=== PATIENT | male | born 1980 | race Asian ===

== ENCOUNTER 2019-07-18 13:48 | Emergency (ER) | payer OTHER ==
--- NOTE | 2019-07-18 15:11 | RAD REPORT ---
EXAM DESCRIPTION: RAD -Hand Left 3 View - 07/18/2019 3:01 pm CLINICAL HISTORY: Left hand pain status post injury FINDINGS: No fracture or dislocation is seen.
--- NOTE | 2019-07-18 15:13 | EDPHYS ---
Physician Documentation [facility] Name: Long Mon Age: 39 yrs Sex: Male : 1980 Arrival Date: 07/18/2019 Time: 13:51 Bed 24 Private MD: ED Physician Gavin Padron HPI: 07/18 15:05 This 39 yrs old Male presents to ER via Ambulatory with complaints of Hand Injury. kb 15:05 The patient or guardian reports decreased range of motion, injury, pain, swelling, kb tenderness. The complaints affect the dorsum of left hand and dorsal aspect of proximal phalanx of left little finger and dorsal aspect of proximal phalanx of left ring finger and dorsal aspect of proximal phalanx of left middle finger. Context: The problem was sustained outdoors, resulted from a crush injury, by industrial equipment. Onset: The symptoms/episode began/occurred yesterday. Modifying factors: The symptoms are alleviated by nothing, the symptoms are aggravated by nothing. Associated signs and symptoms: The patient has no apparent associated signs or symptoms. Severity of symptoms: At their worst the symptoms were moderate, in the emergency department the symptoms are unchanged. The patient has not experienced similar symptoms in the past. The patient has not recently seen a physician. Pt reports his hand got smashed between the bumper of a forklift and wall yesterday. . Historical: - Allergies: 14:05 No Known Allergies; ss - Home Meds: 14:05 Allopurinol Oral [Active]; ss - PMHx: 14:05 None; ss - PSHx: 14:05 None; ss - Immunization history:: Adult Immunizations up to date. - Social history:: Smoking status: Patient denies any tobacco usage or history of. - Ebola Screening: : Patient denies exposure to infectious person Patient denies travel to an Ebola-affected area in the 21 days before illness onset. ROS: 15:05 Constitutional: Negative for fever, chills, and weight loss, Cardiovascular: Negative kb for chest pain, palpitations, and edema, Respiratory: Negative for shortness of breath, cough, wheezing, and pleuritic chest pain, Abdomen/GI: Negative for abdominal pain, nausea, vomiting, diarrhea, and constipation, Back: Negative for injury and pain, Skin: Negative for injury, rash, and discoloration, Neuro: Negative for headache, weakness, numbness, tingling, and seizure. 15:05 MS/extremity: Positive for injury or acute deformity, decreased range of motion, pain, swelling, tenderness, of the dorsum of left hand and dorsal aspect of proximal phalanx of left little finger and dorsal aspect of proximal phalanx of left ring finger and dorsal aspect of proximal phalanx of left middle finger. Exam: 15:02 Constitutional: This is a well developed, well nourished patient who is awake, alert, kb and in no acute distress. Head/Face: Normocephalic, atraumatic. Chest/axilla: Normal chest wall appearance and motion. Nontender with no deformity. No lesions are appreciated. Cardiovascular: Regular rate and rhythm with a normal S1 and S2. No gallops, murmurs, or rubs. Normal PMI, no JVD. No pulse deficits. Respiratory: Lungs have equal breath sounds bilaterally, clear to auscultation and percussion. No rales, rhonchi or wheezes noted. No increased work of breathing, no retractions or nasal flaring. Abdomen/GI: Soft, non-tender, with normal bowel sounds. No distension or tympany. No guarding or rebound. No evidence of tenderness throughout. Skin: Warm, dry with normal turgor. Normal color with no rashes, no lesions, and no evidence of cellulitis. Neuro: Awake and alert, GCS 15, oriented to person, place, time, and situation. Cranial nerves II-XII grossly intact. Motor strength 5/5 in all extremities. Sensory grossly intact. Cerebellar exam normal. Normal gait. 15:02 Musculoskeletal/extremity: Extremities: grossly normal except: noted in the dorsal aspect of proximal phalanx of left middle finger, dorsal aspect of proximal phalanx of left ring finger, dorsal aspect of proximal phalanx of left little finger and dorsum of left hand: decreased ROM, pain, swelling, tenderness, ROM: limited active range of motion, in the dorsal aspect of proximal phalanx of left middle finger, dorsal aspect of proximal phalanx of left ring finger and dorsal aspect of proximal phalanx of left little finger, Circulation is intact in all extremities. Sensation intact. Vital Signs: 14:05 BP 114 / 80; Pulse 83; Resp 15; Temp 98.3(O); Pulse Ox 98% on R/A; Weight 70 kg; Height ss 5 ft. 4 in. (162.56 cm); Pain 6/10; 14:05 Body Mass Index 26.49 (70.00 kg, 162.56 cm) ss MDM: 14:08 Patient medically screened. kb 15:02 Data reviewed: vital signs, nurses notes. Data interpreted: Pulse oximetry: on room air kb is 98 %. Interpretation: normal. 15:07 Test interpretation: by ED physician or midlevel provider: plain radiologic studies, kb nondisplaced fractures of 3rd, 4th and 5th metatarsals.. Counseling: I had a detailed discussion with the patient and/or guardian regarding: the historical points, exam findings, and any diagnostic results supporting the discharge/admit diagnosis, radiology results, the need for outpatient follow up, a hand specialist, to return to the emergency department if symptoms worsen or persist or if there are any questions or concerns that arise at home. 07/18 14:08 Order name: Hand Left 3 View XRAY; Complete Time: 15:14 kb 07/18 15:09 Order name: Volar Wrist Splint: need to extend past DIP of all fingers ; Complete Time: kb 15:38 07/18 15:09 Order name: Sling; Complete Time: 15:27 kb Administered Medications: 15:18 Drug: Ignacio (7.5 mg-325 mg) 1 tabs Route: PO; mg2 Disposition: 07/19 08:01 Co-signature as Attending Physician, Gavin Padron MD I agree with the assessment and tw4 plan of care. Disposition: 07/18/19 15:13 Discharged to Home. Impression: Nondisplaced fracture of shaft of third metacarpal bone, left hand, Nondisplaced fracture of shaft of fourth metacarpal bone, left hand, Nondisplaced fracture of shaft of fifth metacarpal bone, left hand. - Condition is Stable. - Discharge Instructions: Metacarpal Fracture, [id number], Cast or Splint Care, [id number]. - Prescriptions for Tylenol- Codeine #3 300-30 mg Oral Tablet - take 1 tablet by ORAL route every 6 hours As needed; 15 tablet. - Medication Reconciliation Form, Thank You Letter, Antibiotic Education, Prescription Opioid Use form. - Follow up: Emergency Department; When: As needed; Reason: Worsening of condition. Follow up: Private Physician; When: 2 - 3 days; Reason: Recheck today's complaints, Continuance of care, Re-evaluation by your physician. Signatures: Dispatcher [employer] EDMS Eva Rodrigues, LESLIE-Jackelyn NELSON-Taylor Xavier, RN RN ss Gavin Padron MD MD tw4 Enmanuel Fong RN RN mg2 Annmarie Schaffer RN RN ls4 Corrections: (The following items were deleted from the chart) 07/18 16:13 15:13 07/18/2019 15:13 Discharged to Home. Impression: Nondisplaced fracture of shaft ls4 of third metacarpal bone, left hand; Nondisplaced fracture of shaft of fourth metacarpal bone, left hand; Nondisplaced fracture of shaft of fifth metacarpal bone, left hand. Condition is Stable. Forms are Medication Reconciliation Form, Thank You Letter, Antibiotic Education, Prescription Opioid Use. Follow up: Emergency Department; When: As needed; Reason: Worsening of condition. Follow up: Private Physician; When: 2 - 3 days; Reason: Recheck today's complaints, Continuance of care, Re-evaluation by your physician. kb
--- NOTE | 2019-07-18 15:13 | ER ---
Nurse's Notes [facility] Name: Long Mon Age: 39 yrs Sex: Male : 1980 Arrival Date: 07/18/2019 Time: 13:51 Bed 24 Private MD: Diagnosis: Nondisplaced fracture of shaft of third metacarpal bone, left hand;Nondisplaced fracture of shaft of fourth metacarpal bone, left hand;Nondisplaced fracture of shaft of fifth metacarpal bone, left hand Presentation: 07/18 14:03 Presenting complaint: Patient states: Smash injury to L hand that occurred last night ss after smashing hand between bumper of fork lift and ply wood. Transition of care: patient was not received from another setting of care. Onset of symptoms was July 17, 2019. Risk Assessment: Do you want to hurt yourself or someone else? Patient reports no desire to harm self or others. Initial Sepsis Screen: Does the patient meet any 2 criteria? No. Patient's initial sepsis screen is negative. Does the patient have a suspected source of infection? No. Patient's initial sepsis screen is negative. Care prior to arrival: None. 14:03 Method Of Arrival: Ambulatory ss 14:03 Acuity: FLORIN 4 ss Historical: - Allergies: 14:05 No Known Allergies; ss - Home Meds: 14:05 Allopurinol Oral [Active]; ss - PMHx: 14:05 None; ss - PSHx: 14:05 None; ss - Immunization history:: Adult Immunizations up to date. - Social history:: Smoking status: Patient denies any tobacco usage or history of. - Ebola Screening: : Patient denies exposure to infectious person Patient denies travel to an Ebola-affected area in the 21 days before illness onset. Vital Signs: 14:05 BP 114 / 80; Pulse 83; Resp 15; Temp 98.3(O); Pulse Ox 98% on R/A; Weight 70 kg; Height ss 5 ft. 4 in. (162.56 cm); Pain 6/10; 14:05 Body Mass Index 26.49 (70.00 kg, 162.56 cm) ED Course: 13:51 Patient arrived in ED. ds1 14:04 Triage completed. ss 14:05 Arm band placed on right wrist. ss 14:08 Ravi, Eva, [employer]-C is PHCP. kb 14:08 Gavin Padron MD is Attending Physician. kb 14:32 Annmarie Schaffer, RN is Primary Nurse. ls4 15:03 Hand Left 3 View XRAY In Process Unspecified. EDMS 15:38 Orthoglass splint: Volar splint applied on left arm. ms Administered Medications: 15:18 Drug: [place] (7.5 mg-325 mg) 1 tabs Route: PO; mg2 Outcome: 15:13 Discharge ordered by . kb 16:13 Patient left the ED. ls4 Signatures: Dispatcher [employer] EDMS Eva Rodrigues FNP-C [employer]-[place] dsKim Rodarte ms, Shelby, RN RN ss Enmanuel Fong RN RN mg2 Annmarie Schaffer, ANKIT RN ls4
[2019-07-18] MEDS ORDERED: HYDROCODONE/APAP 7.5/325 MG TAB ONE (15:17)
[2019-07-18 17:51] VITALS: BP 114/80; TEMP 98.3; O2SAT 98
== END 2019-07-18 16:13 | disposition home or self-care (01) ==
LOC: ER 13:48
DX: S62.353A Nondisplaced fracture of shaft of third metacarpal bone, left hand, initial encounter for closed fracture (principal); S62.355A Nondisplaced fracture of shaft of fourth metacarpal bone, left hand, initial encounter for closed fracture; S62.357A Nondisplaced fracture of shaft of fifth metacarpal bone, left hand, initial encounter for closed fracture; W31.89XA Contact with other specified machinery, initial encounter; Y93.89 Activity, other specified; Y92.89 Other specified places as the place of occurrence of the external cause; Y99.8 Other external cause status
CPT/HCPCS: 99283